=== PATIENT | male | born 1950 | race Caucasian/White ===

== ENCOUNTER 2018-10-31 22:41 | Emergency (ER) | payer MEDICARE ==
--- NOTE | 2018-10-31 23:06 | EDM.PDOC ---
ED HPI GENERAL MEDICAL PROBLEM - General Chief Complaint: Trauma Time Seen by Provider: 10/31/18 22:41 Source of Information: Reports: Patient History Limitations: Reports: No Limitations - History of Present Illness INITIAL COMMENTS - FREE TEXT/NARRATIVE: Pt. presents to ER as a trauma code. Pt. fell down approx. 4 stairs this evening , striking the occiput of his head. He was unresponsive for 1-2 minutes. No seizure activity. Pt. admits to drinking approx. 9 mixed drinks tonight. He states that he is a heavy marijuana user and has been smoking it today as well. Pt. was alert on arrival of EMS and was able to answer all questions and follow commands. His only complaint was that of occipital headache. Denies any back pain, neck pain, chest pain, shortness of breath, abdominal or pelvic pain. Onset: Today Onset Date: 10/31/18 Location: Reports: Head Quality: Reports: Dull Severity: Moderate Improves with: Reports: Rest Worsens with: Reports: Movement - Related Data Allergies Allergy/AdvReac Type Severity Reaction Status Date / Time No Known Allergies Allergy Verified 10/31/18 22:52 ED ROS GENERAL - Review of Systems Review Of Systems: See Below Constitutional: Reports: No Symptoms HEENT: Reports: No Symptoms Respiratory: Reports: No Symptoms Cardiovascular: Reports: No Symptoms Endocrine: Reports: No Symptoms GI/Abdominal: Reports: No Symptoms : Reports: No Symptoms Musculoskeletal: Reports: No Symptoms Skin: Reports: No Symptoms Neurological: Reports: Headache Psychiatric: Reports: No Symptoms Hematologic/Lymphatic: Reports: No Symptoms Immunologic: Reports: No Symptoms ED EXAM, GENERAL - Physical Exam Exam: See Below Exam Limited By: No Limitations General Appearance: Alert, WD/WN, No Apparent Distress Eye Exam: Bilateral Eye: EOMI, Normal Fundi, Normal Inspection, PERRL Ears: Normal External Exam, Normal TMs Ear Exam: Bilateral Ear: Auricle Normal, Canal Normal, TM normal (No hemotympanum on initial evaluation.) Nose: No Blood. No: Nasal Deformity Throat/Mouth: Normal Inspection, Normal Lips, Normal Teeth, Normal Gums, Normal Oropharynx, Normal Voice, No Airway Compromise Head: Other (R parietal hematoma noted. No obvious crepitus noted. Abrasion noted. No laceration noted.) Neck: Normal Inspection, Other (In c-collar) Respiratory/Chest: No Respiratory Distress, Lungs Clear, Normal Breath Sounds, No Accessory Muscle Use, Chest Non-Tender Cardiovascular: Normal Peripheral Pulses, Regular Rate, Rhythm, No Edema, No Murmur Peripheral Pulses: 4+: Radial (L), Radial (R) GI/Abdominal: Normal Bowel Sounds, Soft, Non-Tender, No Organomegaly, No Distention (Male) Exam: Other (Pt. is incontinent of urine) Rectal (Males) Exam: Deferred Back Exam: Normal Inspection, Full Range of Motion Extremities: Normal Inspection, Normal Range of Motion, Non-Tender, No Pedal Edema, Normal Capillary Refill Neurological: Alert, Oriented, CN II-XII Intact, Normal Cognition, No Motor/ Sensory Deficits, Other (Initially was mildly confused but was alert to self and place. ) Psychiatric: Normal Affect, Normal Mood Skin Exam: Warm, Dry, Intact, Normal Color, No Rash Lymphatic: No Adenopathy Course - Orders/Labs/Meds Orders: Active Orders 24 hr Category Date Time Status Cervical Spine wo Cont [CT] Stat Exams 10/31/18 22:54 Taken Chest 1V Frontal [CR] Stat Exams 10/31/18 22:52 Taken Head wo Cont [CT] Stat Exams 10/31/18 22:53 Taken Labs: Laboratory Tests 10/31/18 10/31/18 10/31/18 Range/Units 22:56 22:56 22:56 WBC 8.0 (4.0-10.0) x10^3/uL RBC 5.43 (4.5-6.0) x10^6/uL Hgb 16.5 (14.0-18.0) g/dL Hct 48.3 (40.0-52.0) % MCV 89.0 (78.0-93.0) fL MCH 30.4 (26.0-32.0) pg MCHC 34.2 (32.0-36.0) g/dL RDW Coeff of Charlene 12.5 (10.0-15.0) % Plt Count 221 (130-400) x10^3/uL Neut % (Auto) 54.0 (50.0-80.0) % Lymph % (Auto) 30.5 (25.0-50.0) % Dubois % (Auto) 6.1 (2.0-11.0) % Eos % (Auto) 8.7 H (0.0-4.0) % Baso % (Auto) 0.7 (0.2-1.2) % PT 10.1 (10.0-12.8) SEC INR 0.9 L (2.0-3.5) Sodium 145 (136-145) mmol/L Potassium 4.2 (3.5-5.1) mmol/L Chloride 105 (98-107) mmol/L Carbon Dioxide 27 (21-32) mmol/L Anion Gap 17.2 (10-20) mmol/L BUN 16 (7-18) mg/dL Creatinine 1.2 (0.70-1.30) mg/dL Est Cr Clr Drug Dosing TNP Estimated GFR (MDRD) > 60 Glucose 221 H (74-106) mg/dL Calcium 9.1 (8.5-10.1) mg/dL Corrected Calcium 9.10 (8.5-10.1) mg/dL Total Bilirubin 0.3 (0.2-1.0) mg/dL AST 21 (15-37) U/L ALT 38 (16-63) U/L Alkaline Phosphatase 89 (46-116) U/L Total Protein 8.2 (6.4-8.2) g/dL Albumin 4.0 (3.4-5.0) g/dL Globulin 4.2 Albumin/Globulin Ratio 0.95 Ethyl Alcohol 256 H (0-3) mg/dL Departure - Departure Time of Disposition: 11:59 Disposition: DC/Tfer to [facility] Clinical Impression: Basilar skull fracture, Closed head injury - Discharge Information Forms: ED Department Discharge - Problem List Review Problem List Initiated/Reviewed/Updated: Yes - My Orders Last 24 Hours: My Active Orders 10/31/18 22:52 Chest 1V Frontal [CR] Stat 10/31/18 22:53 Head wo Cont [CT] Stat 10/31/18 22:54 Cervical Spine wo Cont [CT] Stat - Assessment/Plan Last 24 Hours: My Active Orders 10/31/18 22:52 Chest 1V Frontal [CR] Stat 10/31/18 22:53 Head wo Cont [CT] Stat 10/31/18 22:54 Cervical Spine wo Cont [CT] Stat Plan: Pt. has evidence of a R sided basilar skull fracture extending from level of R middle cranial fossa to R temporal area with R middle ear/mastoid effusion. I spoke with Dr. Ureña, ER doctor at [facility] to accepts the patient in transfer. He will be transported via [facility] ground ambulance.
[2018-10-31 23:31] LABS: CHLORIDE,CL 105 mmol/L (98-107); SODIUM,NA 145 mmol/L (136-145)
[2018-10-31 23:33] LABS: ANION GAP 17.2 mmol/L (10-20)
[2018-11-01] MEDS ORDERED: ceFAZolin 1 GM Vial IVPUSH ONE (00:06)
--- NOTE | 2018-11-01 12:54 | CT ---
[id number] CT/CT Head WO IV EXAM: NONCONTRAST HEAD CT INDICATION: Fall downstairs with occipital hematoma. COMPARISON: None. DISCUSSION: There is a right posterior scalp hematoma. Acute obliquely oriented right temporal bone fracture extending across the middle ear cavity and towards the cochlea. Associated fluid in the right middle ear and mastoid air cells. Mild to moderate generalized atrophy. Mild chronic small vessel ischemic changes. No mass effect or midline shift. No acute hemorrhage or extra-axial fluid collection. No acute territorial infarct is identified. Mild to moderate paranasal sinus mucosal thickening with scattered small secretions. IMPRESSION: 1. Oblique nondisplaced right temporal bone fracture extending across the middle ear cavity and petrous apex. 2. Negative for acute intracranial hemorrhage. Mynor Morales MD 11/01/18 [id number] Thank you for allowing us to participate in the care of your patient.
--- NOTE | 2018-11-01 13:00 | CT ---
[id number] CT/CT Cervical Spine WO IV EXAM: NONCONTRAST CERVICAL SPINE CT INDICATION: Fall with head trauma and loss of consciousness. COMPARISON: None. DISCUSSION: There is gentle reversal of the cervical lordosis which may relate to patient positioning. 2 mm spondylolisthesis C3-C4 and C4-C5. No acute cervical spine fracture is identified. A right temporal bone fracture and paranasal sinus mucosal thickening are further described on a dedicated head CT. Moderate to advanced degenerative disc disease C5-C6 and C6-C7 with milder changes at the remaining disc levels. There is moderate to advanced facet degeneration on the left at C4-C5 with mild to moderate changes at the remaining facet levels. IMPRESSION: 1. No evidence of acute cervical spine trauma. Mynor Morales MD 11/01/18 2537 Thank you for allowing us to participate in the care of your patient.
--- NOTE | 2018-11-01 13:09 | CR ---
[id number] RAD/RAD Chest PA or AP 1V EXAM: FRONTAL CHEST INDICATION: FELL DOWN STAIRS. COMPARISON: None. DISCUSSION: The heart and lungs are normal in appearance. IMPRESSION: 1. Negative exam. Mynor Morales MD 11/01/18 2025 Thank you for allowing us to participate in the care of your patient.
== END 2018-11-01 00:40 | disposition short-term general hospital (02) ==
LOC: VM.ED 22:41
DX: S02.81XA Fracture of other specified skull and facial bones, right side, initial encounter for closed fracture (principal); W10.8XXA Fall (on) (from) other stairs and steps, initial encounter
CPT/HCPCS: 36415; 70450; 71045; 72125; 80053; 85025; 85610; 96374; 99285; G0480; J0690; 99284-GF